=== PATIENT | female | born 1990 | race American Indian/Alaskan Native ===

== ENCOUNTER 2019-01-23 08:52 | Outpatient (CLI) | payer MEDICARE ==
[2019-01-23] MEDS ORDERED: ANCEF/STERILE WATER 2 GM/20 ML 2 GM/20 ML SYRINGE IV SCH (09:00)
[2019-01-23] MEDS ORDERED: LACTATED RINGERS 500 ML IV ONE (09:23)
[2019-01-23 09:52] LABS: Color,Urine Yellow (Yellow)
[2019-01-23 09:53] LABS: Bacteria,Urine 1+ /HPF (Negative); Bilirubin,Urine NEG (Negative); Blood,Urine NEG (Negative); Mucus,Urine FEW /HPF
[2019-01-23] MEDS ORDERED: ceFAZolin 2 GM in NACL 0.9% 100 ML IV ONE (10:56)
[2019-01-23 11:17] VITALS: BP 107/54
[2019-01-23] MEDS ORDERED: ANCEF/STERILE WATER 2 GM/20 ML 2 GM/20 ML SYRINGE IV ONE (11:39)
== END 2019-01-23 13:19 | disposition home or self-care (01) ==
LOC: TRG 08:52
PROVIDERS: ATTEND Obstetrics & Gynecology
DX: O47.03 False labor before 37 completed weeks of gestation, third trimester (principal); Z3A.32 32 weeks gestation of pregnancy
CPT/HCPCS: 59025; 81001; 87086; 96361; 96365; J0690; J7120; 96360

== ENCOUNTER 2019-03-25 06:52 | Inpatient (IN) | payer MEDICARE ==
--- NOTE | 2019-03-25 07:55 | History and Physical Report ---
History of Present Illness Date of examination: 03/25/19 Date of admission: 03/25/19 06:55 Chief complaint: Labor History of present illness: 28 year old presents in active advanced labor (). Patient states her EDC was 03/14/19. She states she has received care at [facility]. No records are available at this time. Patient denies complications during this . She states she had a baby that from trisomy 13 and she states she had a shoulder dystocia with one of her births in the past. She states she has had 3 of her babies at home. No labs are available. Past History Past Medical History: other (obesity) Past Surgical History: no surgical history [employer] History: denies: chlamydia, gonorrhea, hepatitis B, hepatitis C, herpes (reports history of herpes, has been on Valtrex suppression, denies lesions or prodromal symptoms), HIV, syphilis, trichomonas Family/Genetic History: other (trisomy 13 ) Social history: lives with family, full code. denies: smoking, alcohol abuse, prescription drug abuse, IV drug use - Obstetrical History Expected Date of Delivery: 03/14/19 Actual Gestation: 41 Week(s) 4 Day(s) : 6 Para: 5 Hx # Term Pregnancies: 6 Number of Pregnancies: 0 Spontaneous Abortions: 0 Induced : 0 Number of Living Children: 4 Medications and Allergies Allergies Allergy/AdvReac Type Severity Reaction Status Date / Time No Known Allergies Allergy Verified 12/06/15 12:04 Home Medications Medication Instructions Recorded Confirmed Last Taken Type Ibuprofen [Motrin 800 MG tab] 800 mg PO Q8HR PRN #30 tablet 12/06/15 Unknown Rx Acetaminophen [Tylenol] 325 mg PO Q6H #20 capsule 09/04/18 Unknown Rx Ampicillin 500 mg PO Q6H #20 capsule 01/23/19 Unknown Rx Active Meds: Active Medications Ephedrine Sulfate (Ephedrine Sulfate) 10 mg IV Q2M PRN PRN Reason: Hypotension Lactated Ringer's (Lactated Ringers) 1,000 mls @ 125 mls/hr IV DIRECT CHELITA Oxytocin/Sodium Chloride (Pitocin/Ns 20 Unit/1000ml Drip) 20 units in 1,000 mls @ 125 mls/hr IV DIRECT CHELITA Lidocaine (Xylocaine 2%) 20 ml INFILTRATI ONCE ONE Stop: 03/25/19 07:41 Terbutaline Sulfate (Brethine) 0.25 mg SUB-Q ONCE PRN PRN Reason: Hyperstimulation/Hypertonicity Review of Systems All systems: negative (need to push) - Vital Signs Vital signs: Vital Signs Pulse BP 74 118/60 03/25/19 07:31 03/25/19 07:31 Temp Pulse Resp BP Pulse Ox 74 118/60 03/25/19 07:31 03/25/19 07:31 - Physical Exam Abdomen: Positive: normal appearance, soft. Negative: distention, tenderness, guarding, rigidity Genitourinary (Female): Positive: normal external genitalia, normal perenium. Negative: perineal/vulvar lesions Vagina: Positive: other (thin meconium fluid) Uterus: Positive: enlarged (size larger than dates) Anus/Rectum: Positive: normal perianal skin Extremities: Positive: normal. Negative: tenderness, edema - Obstetrical FHR: category 2 Uterine Contraction Monitor Mode: External Cervical Dilatation: 10 Cervical Effacement Percentage: 100 station: +3 Uterine Contraction Pattern: Regular Uterine Contraction Intensity: Moderate Results All other labs normal. Assessment and Plan A: at 41 weeks, 4 days gestation. Active advanced labor, head at time of arrival to L&D. GBS unknown. Previous shoulder dystocia. History of herpes, on Valtrex suppression, and no current lesions or prodromal symptoms. No records or labs available at this time. P: Admit. Obtain records. Draw labs. Anticipate vaginal .
[2019-03-25] MEDS ORDERED: SODIUM CHLORIDE FLUSH SYRINGE 10 ML IV PRN (08:00)
[2019-03-25] MEDS ORDERED: LACTATED RINGERS 1,000 ML IV SCH (08:00)
[2019-03-25] MEDS ORDERED: PITOCin/NS 20 UNIT/1000ML DRIP 20 UNITS/1,000 ML BAG IV SCH (08:00)
[2019-03-25] MEDS ORDERED: XYLOCAINE 2% INFILTRATI NR (08:00)
--- NOTE | 2019-03-25 08:06 | Procedure Note ---
OB Delivery Note - Delivery Date of Delivery: 03/25/19 Surgeon: KENROY PACKER Estimated blood loss: 200cc - Vaginal Delivery presentation: vertex Delivery position: OA Intrapartum events: shoulder dystocia Delivery induction: none Delivery monitor: external FHT, external uterine Route of delivery: Delivery placenta: spontaneous Delivery cord: 3 umbilical vessels Episiotomy: none Delivery laceration: none Anesthesia: none Delivery comments: Precipitous spontaneous vaginal delivery at 07:16 of liveborn female infant weighing 7 lb. 6 oz. over intact perineum with apgars of 8/9. Patient presented to labor room with head . Turtle sign noted upon delivery of head; left anterior shoulder dystocia resolved with Jesus maneuver and delivery of posterior arm. Thin meconium amniotic fluid. 3 vessel cord double clamped and cut. NICU called to delivery and baby taken immediately to radiant warmer after delivery for sutioning. Spontaneous cry and respirations. Spontaneous delivery of intact placenta and membranes. Pitocin to IV fluids after delivery of placenta. EBL 200 cc. Fundus firm and midline. Vaginal sweep negative. Sponge count correct. No lacerations noted. Mother and baby stable.
[2019-03-25 08:07] LABS: Hematocrit 36.5 % (30.3-42.9); Hemoglobin 11.9 gm/dl (10.1-14.3); Mean Corpuscular HGB Conc 33 % (30-34); Mean Corpuscular Volume 93 fl (79-97); Platelet Count 208 K/mm3 (140-440); Red Blood Count 3.92 M/mm3 (3.65-5.03); Red Cell Distribution Width 14.2 % (13.2-15.2)
[2019-03-25] MEDS ORDERED: TUCKS PAD TP PRN (08:30)
[2019-03-25] MEDS ORDERED: NORCO 5/325 PO PRN (08:30)
[2019-03-25] MEDS ORDERED: LANSINOH TP PRN (08:30)
[2019-03-25] MEDS ORDERED: MILK OF MAGNESIA PO PRN (08:30)
[2019-03-25] MEDS ORDERED: BRETHINE SUB-Q PRN (08:30)
[2019-03-25] MEDS: IBUPROFEN PO SCH ×3 (08:51→22:19)
[2019-03-25] MEDS ORDERED: DULCOLAX PR PRN (10:00)
[2019-03-25 19:46] LABS: Hepatitis C Virus Antibody Non-Reactive (NonReactive)
--- NOTE | 2019-03-26 08:05 | Progress Note ---
Assessment and Plan - Patient Problems (1) (normal spontaneous vaginal delivery) Onset Date: 03/26/19 Current Visit: Yes Status: Resolved Plan to address problem: A: S/P - PPD #1 Doing well Asymptomatic anemia - stable P: May go home today. Subjective - Subjective Date of service: 03/26/19 Principal diagnosis: s/p - PPD #1 Interval history: Pt is feeling well without complaints. Bleeding improved. Patient reports: appetite normal, voiding normally, pain well controlled, flatus, ambulating normally, no dizzy ambulation, no nauseated : doing well, nursing well, bottle feeding Objective - Vital Signs Latest vital signs: Vital Signs Temp Pulse Resp BP BP Pulse Ox 03/26/19 00:05 97.5 F L 64 18 103/54 100 03/25/19 20:08 98.6 F 69 20 121/76 98 03/25/19 16:42 97.9 F 84 18 124/63 03/25/19 12:24 97.9 F 68 18 105/64 03/25/19 08:30 98.3 F Intake and Output 03/25/19 03/26/19 03/26/19 22:59 06:59 14:59 Intake Total 360 500 Balance 360 500 Intake: Oral 360 500 Other: Total, Intake Amount 360 300 # Voids Void 2 - Exam Breasts: Present: deferred Abdomen: Present: normal appearance, soft Uterus: Present: normal, firm, fundal height below umbilicus Extremities: Present: normal - Labs Labs: Laboratory Tests 03/25/19 03/25/19 03/25/19 07:36 07:36 07:36 WBC RBC Hgb Hct MCV MCH MCHC RDW Plt Count Hemoglobin A1c RPR Hep Bs Antigen Non-reactive Hepatitis C Antibody Non-reactive HIV 1&2 Antibody Rapid HIV P24 Antigen Rubella IgG Antibody Immune Blood Type O POSITIVE Antibody Screen Negative 03/25/19 03/25/19 03/25/19 07:44 07:44 07:44 WBC 7.2 RBC 3.92 Hgb 11.9 Hct 36.5 MCV 93 MCH 30 MCHC 33 RDW 14.2 Plt Count 208 Hemoglobin A1c 4.7 RPR Nonreactive Hep Bs Antigen Hepatitis C Antibody HIV 1&2 Antibody Rapid HIV P24 Antigen Rubella IgG Antibody Blood Type Antibody Screen 03/25/19 03/26/19 07:44 08:01 WBC RBC Hgb 11.1 Hct 34.2 MCV MCH MCHC RDW Plt Count Hemoglobin A1c RPR Hep Bs Antigen Hepatitis C Antibody HIV 1&2 Antibody Rapid Non react HIV P24 Antigen Non react Rubella IgG Antibody Blood Type Antibody Screen
[2019-03-26 08:21] LABS: Hematocrit 34.2 % (30.3-42.9); Hemoglobin 11.1 gm/dl (10.1-14.3)
[2019-03-26] MEDS: IBUPROFEN PO SCH ×2 (09:39→15:00)
--- NOTE | 2019-03-26 12:31 | Discharge Summary ---
Providers - Providers Date of Admission: 03/25/19 06:55 Date of discharge: 03/26/19 Attending physician: KATRINA PITT Primary care physician: KATRINA PITT Hospitalization Reason for admission: active labor, IUP at term Delivery: Episiotomy: none Laceration: none Other procedures: none complications: none Discharge diagnosis: IUP at term delivered [place] baby: female Hospital course: Unremarkable. Condition at discharge: Good Disposition: DC-01 TO HOME OR SELFCARE - Discharge Diagnoses (1) (normal spontaneous vaginal delivery) Status: Resolved Plan - Discharge Medications Prescriptions: Ferrous Sulfate [Feosol 325 MG tab] 325 mg PO BID #60 tablet Ibuprofen [Motrin 600 MG tab] 600 mg PO Q6H #30 tablet Pnv No.95/Ferrous Fum/Folic AC [Prenavite Tablet] 1 each PO DAILY #30 tablet - Provider Discharge Summary Activity: routine, no sex for 6 weeks, no heavy lifting 4 weeks, no strenuous exercise Diet: routine Instructions: routine Additional instructions: [] Smoking cessation referral if applicable(refer to patient education folder for contact #) [] Refer to [facility]'s [facility] Booklet Call your doctor immediately for: * Fever > 100.5 * Heavy vaginal bleeding ( >1 pad per hour) * Severe persistent headache * Shortness of breath * Reddened, hot, painful area to leg or breast * Drainage or odor from incision. * Keep incision clean and dry at all times and follow doctor's instructions regarding bathing/showering - Follow up plan Follow up: KATRINA PITT MD [Primary Care Provider] - 6 Weeks
[2019-03-26 17:28] VITALS: BP 122/84
== END 2019-03-26 18:38 | disposition home or self-care (01) | DRG 807 ==
LOC: TRG 06:52 → LD 06:55 → OB 10:16
PROVIDERS: ADMIT Obstetrics & Gynecology; ATTEND Obstetrics & Gynecology
PROC: 10E0XZZ Delivery of Products of Conception, External Approach (ICD-10-PCS; principal; 2019-03-25)
DX: O99.214 Obesity complicating childbirth (principal); Z37.0 Single live birth; E66.9 Obesity, unspecified; Z3A.41 41 weeks gestation of pregnancy
CPT/HCPCS: 36415; 83036; 85014; 85018; 85027; 86592; 86706; 86762; 86803; 86850; 86900; 86901; 87806; G0378; J2590; J7120

== ENCOUNTER 2019-09-12 21:50 | Emergency (ER) | payer MEDICARE ==
[2019-09-12 22:09] VITALS: BP 109/74
--- NOTE | 2019-09-12 22:26 | Emergency Department Report ---
Blank Doc - Documentation Documentation: c/o of spontaneous calf pain and swelling with bruising. Tender to touch This initial assessment/diagnostic orders/clinical plan/treatment(s) is/are subject to change based on patient's health status, clinical progression and re- assessment by fellow clinical providers in the ED. Further treatment and workup at subsequent clinical providers discretion. Patient/guardians urged not to elope from the ED as their condition may be serious if not clinically assessed and managed. Initial orders include: Plan U/s
--- NOTE | 2019-09-13 00:29 | Vascular Lab Report ---
DUPLEX DOPPLER LOWER EXTREMITY VEINS, LEFT INDICATION: calf pain and swelling. TECHNIQUE: Duplex doppler imaging was performed through the veins of the left lower extremity using venous compr ession and other maneuvers. COMPARISON: None available. FINDINGS: Common Femoral vein: Negative. Superficial Femoral vein: Negative. Popliteal vein: Negative. Calf veins: Negative. Additional findings: None. IMPRESSION: 1. No sonographic evidence for DVT in the left lower extremity. Signer Name: Amado Goel MD Signed: 09/13/2019 12:25 AM Workstation Name: [email or web address]
--- NOTE | 2019-09-13 01:12 | Emergency Department Report ---
ED Extremity Problem HPI - General Chief complaint: Extremity Problem,Nontraumatic Stated complaint: BRUISE ON L CALF/CRAMPING/SWELLING Time Seen by Provider: 09/12/19 22:24 Source: patient Mode of arrival: Ambulatory Limitations: No Limitations - History of Present Illness Initial comments: Patient reports that she noticed a bruise on the back of her left calf today. Denies trauma. Denies hx PE/DVT. Reports left leg pain up to her thigh. MD Complaint: extremity pain -: Gradual, days(s) (1) Location: left, lower extremity History of Same: No -: No myalgia, No arthralgia, No fever, No associated dyspnea, No associated chest pain Radiation: none Severity scale (0 -10): 1 Quality: aching Consistency: intermittent Improves with: nothing Worsens with: nothing Associated Symptoms: denies: chest pain, shortness of breath, fever, myalgias, arthralgias, rash - Related Data Previous Rx's Medication Instructions Recorded Last Taken Type Ibuprofen [Motrin 800 MG tab] 800 mg PO Q8HR PRN #30 tablet 12/06/15 Unknown Rx Acetaminophen [Tylenol] 325 mg PO Q6H #20 capsule 09/04/18 Unknown Rx Ampicillin 500 mg PO Q6H #20 capsule 01/23/19 Unknown Rx Ferrous Sulfate [Feosol 325 MG tab] 325 mg PO BID #60 tablet 03/26/19 Unknown Rx Ibuprofen [Motrin 600 MG tab] 600 mg PO Q6H #30 tablet 03/26/19 Unknown Rx Pnv No.95/Ferrous Fum/Folic AC 1 each PO DAILY #30 tablet 03/26/19 Unknown Rx [Prenavite Tablet] Ibuprofen [Motrin 400 MG tab] 400 mg PO Q6H PRN #18 tablet 09/13/19 Unknown Rx Allergies Allergy/AdvReac Type Severity Reaction Status Date / Time No Known Allergies Allergy Verified 12/06/15 12:04 ED Review of Systems ROS: Stated complaint: BRUISE ON L CALF/CRAMPING/SWELLING Other details as noted in HPI Other: GENERAL: No weight change, fatigue, fever, chills, or night sweats SKIN: No changes in skin or hair, no itching, no rashes, no jaundice HEAD: No trauma, headache, or visual changes EYES: No blurriness, tearing, itching, acute visual loss, conjunctival discoloration, or scleral icterus EARS: No hearing loss, tinnitus, vertigo, or earache NOSE: No rhinorrhea, stuffiness, sneezing, itching, or epistaxis MOUTH: No bleeding gums, hoarseness, sore throat, or swelling CARDIAC: No new murmur, chest pain, palpitations, dyspnea on exertion, orthopnea, PND, or edema RESPIRATORY: No shortness of breath, wheeze, cough, sputum production, hemoptysis, pneumonia, asthma, bronchitis, or emphysema GI: No change in appetite, nausea, vomiting, dysphagia, diarrhea, constipation, hematemesis, melena, hematochezia, or abdominal pain URINARY: No frequency, urgency, polyuria, dysuria, hematuria, or incontinence MUSCULOSKELETAL: Left leg calf bruise associated with pain. No muscle weakness, joint stiffness, decrease in range of motion NEUROLOGIC: No headache, syncope, loss of sensation, numbness, tingling, tremors, weakness, paralysis, seizures HEMATOLOGIC: No anemia, easy bruising, bleeding, petechiae, or purpura ENDOCRINE: No hot or cold intolerance, sweating, polyuria, polydipsia or, polyphagia no thyroid problems PSYCHIATRIC: No change in mood, no anxiety, no depression ED Past Medical Hx - Past Medical History Previous Medical History?: Yes Hx Hypertension: No Hx Congestive Heart Failure: No Hx Diabetes: No Hx Deep Vein Thrombosis: No Hx Renal Disease: No Hx Sickle Cell Disease: No Hx Seizures: No Hx Psychiatric Treatment: Yes (BIPOLAR , SCHIZOPHRENIC, DEPRESSION) Hx Asthma: No Hx COPD: No Hx HIV: No - Surgical History Past Surgical History?: No - Social History Smoking Status: Never Smoker Substance Use Type: None - Medications Home Medications: Home Medications Medication Instructions Recorded Confirmed Last Taken Type Ibuprofen [Motrin 800 MG tab] 800 mg PO Q8HR PRN #30 tablet 12/06/15 03/25/19 Unknown Rx Acetaminophen [Tylenol] 325 mg PO Q6H #20 capsule 09/04/18 03/25/19 Unknown Rx Ampicillin 500 mg PO Q6H #20 capsule 01/23/19 03/25/19 Unknown Rx Ferrous Sulfate [Feosol 325 MG tab] 325 mg PO BID #60 tablet 03/26/19 Unknown Rx Ibuprofen [Motrin 600 MG tab] 600 mg PO Q6H #30 tablet 03/26/19 Unknown Rx Pnv No.95/Ferrous Fum/Folic AC 1 each PO DAILY #30 tablet 03/26/19 Unknown Rx [Prenavite Tablet] Ibuprofen [Motrin 400 MG tab] 400 mg PO Q6H PRN #18 tablet 09/13/19 Unknown Rx ED Physical Exam - General Limitations: No Limitations - Other Other exam information: GENERAL: Patient in no acute distress HEAD: Normocephalic, atraumatic EYES: PERRLA, EOM intact, no scleral icterus, no conjunctival hemorrhage, visual ferreira and acuity wnl NOSE: No tenderness, discharge, sinus tenderness MOUTH: No erythema, bleeding, exudate HEART: pulses are symmetric LUNGS: No respiratory distress. MUSCULOSKELETAL: Normal joint range of motion, no redness, no swelling, no tenderness NEUROLOGIC: GCS 15, Alert and Oriented x3, Cranial nerves intact, normal sensation, normal strength, no cerebellar deficit, NIHSS 0 SKIN: Skin is warm and dry, erythema over left calf measuring approximately 2-3 cm mildly tender. ED Course Vital Signs 09/12/19 22:07 Temperature 98.0 F Pulse Rate 76 Respiratory 18 Rate Blood Pressure 109/74 O2 Sat by Pulse 99 Oximetry ED Medical Decision Making - Radiology Data Radiology results: report reviewed - Medical Decision Making Patient comfortable. Reports symptom improvement. Updated with results. Plan discharge with outpatient follow up. Return if any worsening. Critical care attestation.: If time is entered above; I have spent that time in minutes in the direct care of this critically ill patient, excluding procedure time. ED Disposition Clinical Impression: Leg pain, left Disposition: -01 TO HOME OR SELFCARE Is pt being admited?: No Condition: Stable Instructions: Contusion in Adults (ED) Prescriptions: Ibuprofen [Motrin 400 MG tab] 400 mg PO Q6H PRN #18 tablet PRN Reason: pain Referrals: PRIMARY CARE, [Primary Care Provider] - 2-3 Days [facility] [Outside] - as needed Time of Disposition: 01:11
== END 2019-09-13 01:27 | disposition home or self-care (01) ==
LOC: ED 21:50
DX: M79.605 Pain in left leg (principal)